=== PATIENT | male | born 1990 | race Caucasian/White ===

== ENCOUNTER 2017-07-27 16:04 | Emergency (ER) | payer OTHER ==
[~2017-07-27] VITALS: Ht 177.8 cm; Wt 68.0 kg
[~2017-07-27 16:04] MED LIST: FLEXERIL PO; HYDROCODON-ACE1 EAC7 PO; HYDROCODONE-AP1 EAC6 PO; IBUPROFEN 800800 MG PO; NORCO 5-325 TA1 EACH PO; PHENERGAN 25 MG25 M1 PO
[2017-07-27] MEDS ORDERED: NORCO 5-325 TA1 EACH PO (17:24)
[2017-07-27] MEDS ORDERED: IBUPROFEN 600600 M1 PO (17:24)
[2017-07-27 17:53] VITALS: BP 133/70
== END 2017-07-27 17:54 | disposition home or self-care (01) ==
LOC: M.ERS 16:04
DX: S62.327A Displaced fracture of shaft of fifth metacarpal bone, left hand, initial encounter for closed fracture (principal); F17.210 Nicotine dependence, cigarettes, uncomplicated; W22.01XA Walked into wall, initial encounter; Y93.89 Activity, other specified; Y92.89 Other specified places as the place of occurrence of the external cause; Y99.8 Other external cause status

== ENCOUNTER 2020-04-07 14:28 | Emergency (ER) | payer OTHER ==
[~2020-04-07] VITALS: Ht 177.8 cm; Wt 68.0 kg
[~2020-04-07 14:28] MED LIST changes: +IBUPROFEN 600600 M1 PO
[2020-04-07 14:58] LABS: ABSOLUTE BASOPHILS 0.1 thou/uL (0.0-0.2); ABSOLUTE EOSINOPHILS 0.1 thou/uL (0.0-0.7); ABSOLUTE LYMPHOCYTES 2.1 thou/uL (0.8-5.3); ABSOLUTE MONOCYTES 0.4 thou/uL (0.0-1.2); ABSOLUTE NEUTROPHILS 3.5 thou/uL (1.6-8.1); BASOPHILS 1.9 %; EOSINOPHILS 1.6 %; HEMATOCRIT 43.3 % (42.0-52.0); HEMOGLOBIN 15.1 gm/dL (14.0-18.0); LYMPHOCYTES 33.8 %; MCH 30.1 pg (26.0-34.0); MCHC 34.8 g/dL (28.0-37.0); MCV 86.6 fL (80.0-100.0); MONOCYTES 6.6 %; MPV 8.9 fl. (7.2-11.1); NUCLEATED RBCS 0 /100WBC; PLATELET COUNT* 234 thou/uL (150-400); POLYS 56.1 %; RDW-CV 12.8 % (10.5-14.5); WBC 6.2 thou/uL (4.0-11.0)
[2020-04-07 15:07] LABS: POTASSIUM 3.8 mmol/L (3.5-5.1)
[2020-04-07 15:09] LABS: INR 1.1; PROTIME 11.2 Seconds (9.20-11.50)
[2020-04-07 15:11] LABS: ALBUMIN 4.5 g/dL (3.4-5.0); MAGNESIUM 1.8 mg/dL (1.8-2.4); TOTAL BILIRUBIN 0.5 mg/dL (<0.1-1.0); TOTAL PROTEIN 7.6 g/dL (6.4-8.2)
[2020-04-07] MEDS ORDERED: NORCO 5-325 TA1 EAC2 PO (15:59)
[2020-04-07 16:35] VITALS: BP 118/77
--- NOTE | 2020-04-08 07:59 | EKG ---
[place] [address] ELECTROCARDIOGRAM REPORT Name: LAYA SLAUGHTER Room: [facility]#: [id number] Admission: 04/07/20 Attend Phys: Discharge: 04/07/20 Date of : 88 Date of Service: 04/07/20 1435 Report #: [id number] THIS REPORT FOR: //name// [facility] ED Test Date: 2020-04-07 Test Time: 14:35:14 Pat Name: LAYA SLAUGHTER Department: Room: Gender: [employer]: ROBBY : 1990 Requested By: Raji Moe Order Number: [id number] MD: Andrew Friend Measurements Intervals [place] Rate: 85 P: 67 ME: 175 QRS: 34 QRSD: 96 T: 43 QT: 341 QTc: 406 Interpretive Statements Sinus rhythm Probable left atrial enlargement RSR' in V1 or V2, probably normal variant Compared to ECG 07/07/2015 23:39:23 RSR' in V1 or V2 now present First degree AV block no longer present Electronically Signed On 04-08-2020 7:58:43 CDT by Andrew Friend [email or web address] <ELECTRONICALLY SIGNED> By: Andrew Friend MD, [facility] 04/08/20 0758 1435 1435 Andrew Friend MD, [facility] /EPI
== END 2020-04-07 16:35 | disposition home or self-care (01) ==
LOC: M.ERS 14:28
PROVIDERS: Emergency Medicine Emergency Medical Services
DX: R07.89 Other chest pain (principal); R05 Cough; R61 Generalized hyperhidrosis; F17.210 Nicotine dependence, cigarettes, uncomplicated